=== PATIENT | male | born 1995 | race Two or more races ===

== ENCOUNTER 2017-05-12 14:03 | Emergency (ER) | payer OTHER ==
--- NOTE | ~2017-05-12 | CT23 ---
[facility] A Service of [facility] RADIOLOGY TEXT RESULTS PATIENT: NELIA FITZGERALD LOCATION: [facility] : [birth year] UNIT #: [id number] AGE: [address]: Medina Ulloa MD SEX: M ORDER DR: [id number] [facility] [address] [place], [place] [address] [id number] MR#: [id number] Acc #: [id number] NAME: NELIA FITZGERALD : 1995 SEX: M STUDY DATE/TIME: 05/12/2017 17:15 UNIT: [facility] ROOM: STUDY DESCRIPTION: CT Angio Neck Attending Physician: Medina Ulloa M.D. Ordering Physician: Medina Ulloa M.D. MEDICAL IMAGING REPORT This report is preliminary unless electronic signature is present EXAM CT angiography of the neck HISTORY Suicide attempt. Tried to tie sewing thread around neck. TECHNIQUE CT angiography neck performed with intravenous administration of 100 mL Isovue-370. Multiple three-dimensional reconstructions performed through the vascular structures. COMPARISON STUDIES No comparisons. FINDINGS Visualized portions of brain unremarkable. The visualized paranasal sinuses and mastoid air cells appear clear. The visualized nasopharyngeal, oropharyngeal, pharyngeal mucosal, retropharyngeal spaces unremarkable. Larynx, subglottic airway, visualized superior mediastinum unremarkable. Visualized pulmonary parenchyma clear. Thyroid, submandibular and parotid glands unremarkable. No adenopathy. No traumatic bony abnormality is suggested. No clear indication of traumatic paraspinal soft tissue abnormality. VASCULAR ANATOMY: Visualized pulmonary arteries unremarkable. Visualized thoracic aorta normal in appearance. Great vessel origins are patent. The left vertebral artery arises from aortic arch. Normal variant. The vertebral arteries are patent bilaterally with a very slightly dominant right vertebral artery. Both vertebral arteries contribute to the basilar artery. Visualized basilar artery normal. The bilateral subclavian arteries are unremarkable. Bilateral common carotid arteries normal. Bilateral cervical, internal and external carotid arteries are normal in [facility] A Service of [facility] RADIOLOGY TEXT RESULTS PATIENT: NELIA FITZGERALD LOCATION: [facility] : [birth year] UNIT #: [id number] AGE: [address]: Medina Ulloa MD SEX: M ORDER DR: appearance. There is no evidence of flow-limiting stenosis. No evidence of dissection or traumatic vascular injury. The visualized petrous and cavernous carotid arteries are unremarkable. IMPRESSION 1. The visualized vertebral and carotid systems in the neck are normal in appearance. There is no evidence of traumatic vascular injury. No dissection. 2. No traumatic paraspinal soft tissue abnormality is suggested in the neck. 3. The study was not tailored for assessment of the bony structures but no acute-appearing bony abnormality is seen. 4. Visualized upper thorax unremarkable. See details above. Dictated by... eBrlin Silva M.D. THIS IS AN ELECTRONICALLY VERIFIED REPORT Berlin Silva M.D. at 05/13/2017 9:39 PM EMELINA/lizeth TD: 05/12/2017 21:46 JOB #: [id number] MEDICAL IMAGING REPORT Page 1 of 1 COPY
[~2017-05-12 14:03] MED LIST: AMOXICILLIN875 MG PO; FAMOTIDINE PO; NAPROSYN-EC500 M1 PO; ZOFRANODT PO
[2017-05-12 16:51] LABS: URINE SOURCE CLEAN CATCH
[2017-05-12 17:03] LABS: BASOPHIL% 0.3 % (0-2.5); EOSINOPHIL% 0.2 % (0.0-7.0); HEMATOCRIT 47.8 % (38.0-50.0); HEMOGLOBIN 15.3 gm/dL (13.0-16.0); LYMPHOCYTE% 13.7 % (17.0-45.0); MEAN CELL VOLUME 84.6 FL (83-96); MEAN PLATELET VOLUME 10.1 FL (6.5-11.5); MONOCYTE# 0.5 X10e3 (0-1.0); MONOCYTE% 3.7 % (3.0-12.0); NEUTROPHIL# 12.2 X10e3 (1.5-7.1); NEUTROPHIL% 82.1 % (40-75); PLATELET COUNT 173 X10e3 (140-420); RED BLOOD COUNT 5.65 X10e (3.90-5.60); RED CELL DISTRIBUTION WIDTH 13.9 % (11.0-15.5); WHITE BLOOD COUNT 14.8 X10e3 (4.0-10.5)
[2017-05-12 17:05] LABS: URINE APPEARANCE CLEAR; URINE BILIRUBIN NEG (NEG); URINE BLOOD NEG (NEG); URINE COLOR YELLOW; URINE GLUCOSE NEG (NEG); URINE KETONE NEG (NEG); URINE LEUKOCYTE ESTERASE TRACE (NEG); URINE NITRATE NEG (NEG); URINE PH 5.5 (5-8); URINE PROTEIN NEG (NEG); URINE SPECIFIC GRAVITY 1.013 (1.003-1.035); URINE UROBILINOGEN 0.2 MG/DL (NEG)
[2017-05-12 17:05] LABS: DIFF IND NO
[2017-05-12 17:08] LABS: U HYALINE CASTS AUWI 0-2 /[LPF]; URBCS1 AUWI 0-2 /[HPF] (0-2); URINE BACTERIA AUWI NEG (NEGATIVE); URINE SQUAMOUS EPITHELIAL CELL NONE SEEN /[HPF]
[2017-05-12 17:11] LABS: CULTURE INDICATED? NO
[2017-05-12 17:20] LABS: ALBUMIN SERUM 4.8 g/dL (3.5-5.0); ALKALINE PHOSPHATASE 64 U/L (32-92); ALT (SGPT) 14 U/L (10-40); AST (SGOT) 16 U/L (10-42); BILIRUBIN, DIRECT 0.2 mg/dL (0.0-0.2); BILIRUBIN,INDIRECT 2.1 mg/dL (0.0-0.9); BILIRUBIN,TOTAL 2.3 mg/dL (0.2-2.0); BLOOD UREA NITROGEN 17 mg/dL (9-23); BUN/CREATININE RATIO 15.45; CALCIUM SERUM 9.3 mg/dL (8.4-10.2); CARBON DIOXIDE 26 mmol/L (22-31); CHLORIDE 107 mmol/L (100-111); CREATININE SERUM 1.1 mg/dL (0.6-1.4); GLOM FILT RATE Estimated 96.1 mL/min (>60); GLUCOSE FASTING 82 mg/dL (70-110); POTASSIUM 3.5 mmol/L (3.5-5.1); PROTEIN TOTAL SERUM 7.7 g/dL (6.0-8.3); SALICYLATE <4.0 mg/dL; SODIUM 139 mmol/L (135-145)
[2017-05-12 17:21] LABS: AMPHETAMINE NEG (NEG); BARBITURATES NEG (NEG); BENZODIAZEPINES NEG (NEG); COCAINE NEG (NEG); MARIJUANA POS (NEG); OPIATES NEG (NEG); TRICYCLIC ANTIDEPRESSANTS NEG (NEG); U METHADONE NEG (NEG)
[2017-05-12 17:22] LABS: ACETAMINOPHEN <10 ug/mL; ALCOHOL BLOOD <5 mg/dL (0)
[2017-05-12 18:06] LABS: POC - CREATININE 0.99 mg/dL (0.64-1.27); POC - GFR >60.0 mL/min (>60)
== END 2017-05-12 22:40 ==
LOC: CED 14:03
PROVIDERS: Emergency Medicine
DX: T14.91 Suicide attempt (principal); F32.9 Major depressive disorder, single episode, unspecified; F17.210 Nicotine dependence, cigarettes, uncomplicated; Z90.89 Acquired absence of other organs; Z79.2 Long term (current) use of antibiotics; Z79.899 Other long term (current) drug therapy
CPT/HCPCS: 36415; 70498; 80048; 80076; 80307; 81003; 82565; 85025; 99285; G0480; Q9967

== ENCOUNTER 2017-05-12 19:41 | Inpatient (IN) | payer OTHER ==
--- NOTE | ~2017-05-12 | DS ---
Unit #: [id number] #: [id number] Patient: NELIA FITZGERALD [id number] [place] [address] [id number] I MR#: [id number] NAME: NELIA FITZGERALD ROOM: [facility] Age: 21 Sex: M Admission Date: 05/12/2017 : 1995 Discharge Date: 05/18/2017 Attending Physician: Tavon Bradley M.D. Primary Care Physician: Primary Care Physician No DISCHARGE SUMMARY REASON FOR ADMISSION The patient is a 23-year-old male, admitted to the [facility] unit with suicidal ideation. HOSPITAL COURSE The patient was admitted to the [facility] unit and placed on suicide precautions. He was begun on Lexapro 10 mg nightly and trazodone on a p.r.n. basis for sleep. Trazodone was increased to 100 mg at h.s. The patient did seem to have some rather unrealistic expectations of inpatient care initially during his stay in the hospital, but as his stay progressed, he was more active within the therapeutic milieu and reported reduction in suicidal ideation. By 05/18/2017, he had reconciled with his "baby mama" and requested discharge from the hospital, it was so ordered. FINAL DIAGNOSIS Major depressive disorder, recurrent, moderate. DISPOSITION ON DISCHARGE The patient is discharged on the following medications; trazodone 100 mg at h.s. p.r.n. insomnia and Lexapro 10 mg daily for depression. DISCHARGE INSTRUCTIONS No dietary or physical restrictions were placed on the patient at the time of discharge. It will be recommended that he follow in the intensive outpatient program provided by this facility and through the auspices of community mental health resources. PROGNOSIS The patient's prognosis is considered fair. Dictated by... Tavon Bradley M.D. CB/lucy TD: 05/19/2017 08:04 JOB #: [id number] Unit #: [id number] #: [id number] Patient: NELIA FITZGERALD DISCHARGE SUMMARY Page 1 of 1 X Tavon Bradley MD X DISCHARGE SUMMARY
--- NOTE | ~2017-05-12 | PA ---
Unit #: [id number] #: [id number] Patient: NELIA FITZGERALD [id number] [facility] [address] [place] [address] [id number] MR#: [id number] NAME: NELIA FITZGERALD ROOM: P254 Age: 21 Sex: M Admission Date: 05/12/2017 : 1995 Date of Assessment: 05/13/2017 Attending Physician: Tavon Bradley M.D. Admitting Physician: Tavon Bradley M.D. Primary Care Physician: Primary Care Physician No PSYCHIATRIC ASSESSMENT IDENTIFYING INFORMATION The patient is a 21-year-old male admitted to the [address] [place] [address] with recent suicide attempt. INFORMANT(S) Patient. RELIABILITY Good. CHIEF COMPLAINT Tried to kill myself. HISTORY OF PRESENT ILLNESS The patient is a 21-year-old male admitted to the [address] [place] [address] after he had attempted suicide by means of hanging himself using thread. The patient reports 1 previous suicide attempt this having taken place approximately 1 month ago. The patient recently moved to the [facility] from [place] where he had lived for most of his life. He is here because his "spouse has family here." He reports that he has not been able to find work in the [place] area. He had previously done work in a body shop. Patient denies any prior psychiatric treatment. He continues to complain of depressed mood, hopelessness, reduced sleep and loss of appetite. PAST PSYCHIATRIC HISTORY None. FAMILY HISTORY Noncontributory. SOCIAL HISTORY The patient is originally from [facility]. 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 He lives with his "spouse" and the 4 children of their combined family. MEDICAL HISTORY Noncontributory. MEDICATION HISTORY None. Unit #: [id number] #: [id number] Patient: NELIA FITZGERALD ALLERGIES None. MENTAL STATUS EXAM At this time, reveals the patient to be a well-developed, well-nourished male appearing stated age. He is in no apparent physical distress at the time of examination. He is awake, alert, oriented in all spheres. His mood is mildly dysphoric. His affect constricted. Speech is generally relevant and coherent. There are no gross deficits in memory or cognition noted. Intelligence is judged to be in the average range based on fund of knowledge. The patient is cooperative throughout the interview. He continues to endorse positive suicidal ideation. He denies homicidal ideation. He denies any psychotic symptoms. His judgement and insight appear to be reasonably intact. ASSETS AND LIABILITIES Patient's assets, motivation for change. Liabilities, lack of resources, unemployment. ADMITTING DIAGNOSES 1. Major depressive disorder, single episode moderate. 2. Cannabis use disorder. PSYCHIATRIC PLAN/TREATMENT GOALS The patient remains hospitalized for safety and stabilization. A trial of Lexapro 10 mg daily will be initiated and the patient will be transferred to the [address] [place] [address] unit. The patient will participate in appropriate waldrop and milieu activities. DISCHARGE PLANNING Followup to take place through the auspices of community mental health resources. ESTIMATED LENGTH OF STAY Five to seven days. Dictated by... Tavon Bradley M.D. ENDER/lowell TD: 05/13/2017 20:54 JOB #: [id number] PSYCHIATRIC ASSESSMENT Page 1 of 1 X Tavon Bradley MD X PSYCHIATRIC ASSESSMENT
--- NOTE | ~2017-05-12 | PN ---
Unit #: [id number] #: [id number] Patient: NELIA FITZGERALD [id number] [facility] [address] [place] [address] [id number] I MR#: [id number] NAME: NELIA FITZGERALD ROOM: P254 Age: 21 Sex: M Admission Date: 05/12/2017 : 1995 Attending Physician: Tavon Bradley M.D. Admitting Physician: Tavon Bradley M.D. Primary Care Physician: Primary Care Physician Mariah SWANSON PROGRESS NOTES DATE 05/17/2017 DISCUSSION The patient is in somewhat brighter spirits today and is reporting a reduction in suicidal ideation. He seems more hopeful and does appear to have made arrangements for postdischarge housing should he sustain progress discharge will likely take place tomorrow. Dictated by... Tavon Bradley M.D. CB/maisha TD: 05/17/2017 12:58 JOB #: [id number] [facility] PROGRESS NOTES Page 1 of 1 X Tavon Bradley MD PROGRESS NOTE
--- NOTE | ~2017-05-12 | PN ---
Unit #: [id number] #: [id number] Patient: NELIA FITZGERALD [id number] [facility] [address] [place] [address] [id number] I MR#: [id number] NAME: NELIA FITZGERALD ROOM: P254 Age: 21 Sex: M Admission Date: 05/12/2017 : 1995 Attending Physician: Tavon Bradley M.D. Admitting Physician: Tavon Bradley M.D. Primary Care Physician: Primary Care Physician Mariah TOVAR NOTES DATE 05/15/2017 DISCUSSION The patient is active within the therapeutic milieu. He continued to complain of poor sleep and continues to endorse positive suicidal ideation. When asked regarding post discharge treatment options the patient today states that he does not wish to leave this facility. He also indicates that he has tended to sleep better in hospitals in the past indicating a possibility that he has been hospitalized on multiple previous occasions and may be somewhat hospital dependent. His expectations of inpatient care firmly redirected today. I will increase his trazodone to 100 mg at h.s. suicidal ideation remain in place. Dictated by... Tavon Bradley M.D. CB/jace TD: 05/16/2017 00:57 JOB #: [id number] [facility] TOVAR NOTES Page 1 of 1 X Tavon Bradley MD PROGRESS NOTE
--- NOTE | ~2017-05-12 | PN ---
Unit #: [id number] #: [id number] Patient: NELIA FITZGERALD [id number] [facility] [address] [place] [address] [id number] I MR#: [id number] NAME: NELIA FITZGERALD ROOM: P254 Age: 21 Sex: M Admission Date: 05/12/2017 : 1995 Attending Physician: Tavon Bradley M.D. Admitting Physician: Tavon Bradley M.D. Primary Care Physician: Primary Care Physician Mariah SWANSON PROGRESS NOTES DATE 05/16/2017 DISCUSSION The patient seems a bit brighter today and says that he slept better last evening. He is reporting reduction in suicidal ideation, and should he sustain progress discharge should take place as early as tomorrow. Dictated by... Tavon Bradley M.D. CB/bztrudy TD: 05/16/2017 13:39 JOB #: [id number] [facility] PROGRESS NOTES Page 1 of 1 X Tavon Bradley MD X PROGRESS NOTE
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
--- NOTE | ~2017-05-12 | PN ---
Unit #: [id number] #: [id number] Patient: NELIA FITZGERALD [id number] [facility] [address] [place] [address] [id number] I MR#: [id number] NAME: NELIA FITZGERALD ROOM: P254 Age: 21 Sex: M Admission Date: 05/12/2017 : 1995 Attending Physician: Tavon Bradley M.D. Admitting Physician: Tavon Bradley M.D. Primary Care Physician: Primary Care Physician Mariah SWANSON PROGRESS NOTES DATE 05/14/2017 DISCUSSION The patient remains dysphoric and expresses some rather unrealistic expectations of inpatient care stating "the minute I walk back out there I will be suicidal" related to his current homeless status and ability to return to his home state of [place], etc. I have redirected the patient's expectations of inpatient care and I will ask a protective services social worker to see him regarding resources for the homeless. Dictated by... Tavon Bradley M.D. CB/lowell TD: 05/14/2017 12:07 JOB #: [id number] [facility] PROGRESS NOTES Page 1 of 1 X Tavon Bradley MD PROGRESS NOTE
--- NOTE | ~2017-05-12 | A ---
[facility] Nutrition Therapy DATE: 05/13/17 Patient: NELIA FITZGERALD Physician: KINGS Address: [address] Room/Bed: [address], Zip: [place] [address] Admit Date: 05/12/17 Date of : [birth year] Height: 5 8 Weight: [id number] NUTRITIONAL ASSESSMENT: REASON: UNINTENTIONAL WEIGHT LOSS PATIENT ADMITTED FOR DEPRESSION AND SI PMH: GERD Anthropometrics: HT: 5'8", WT: 155#, BMI: 23.6 Labs: 05/12/17- ALL NUTRITIONAL LABS WNL Meds: MILK OF MAG, MAG-AL Assessment: PATIENT IS A 21 Y/O MALE ADMITTED FOR DEPRESSION AND SI. PATIENT IS CURRENTLY UNEMPLOYED, LIVES WITH FAMILY, AND HAS OCCASIONAL MARIJUANA USE BUT DENIES ANY OTHER SUBSTANCE ABUSE. UPON ADMIT PATIENT STATED A POOR APPETITE WITH A 5# WEIGHT LOSS OVER LAST SEVERAL MONTHS, AND HE HAS NOT BEEN EATING OR SLEEPING WELL. WEIGHT HX PER [employer] SHOWS A 5# WEIGHT LOSS X 1 YEAR. CURRENT PO INTAKES ARE UNAVAILABLE. THERE ARE NO SKIN OR GI ISSUES NOTED ATT. PATIENT'S NUTRITION LABS WERE ALL WNL. HIS BMI IS WITHIN A HEALTHY RANGE. PATIENT IS ON A REGULAR DIET. Dx: UNINTENTIONAL WEIGHT LOSS R/T DEPRESSION AEB WEIGHT LOSS, DECREASED APPETITE, NUTRITIONAL RISK POINT Intervention: REGULAR DIET, MEDS PER MD, PSYCH Monitoring, Evaluation and Goals: 1. ADEQUATE PO INTAKES >50% OF MEALS 2. PREVENT, CORRECT MICRO/MACRO NUTRIENT DEFICIENCIES MONITOR: WEIGHTS, LABS, PO/FLUID INTAKES Recommendations: 1. CONTINUE REGULAR DIET TOLERATED 2. ENCOURAGE ADEQUATE PO AND FLUID INTAKES 3. OBTAIN WEIGHTS ROUTINELY (EVERY 3-4 DAYS) RD TO F/U PER PROTOCOL AND PRN R/T PATIENT MILDLY COMPROMISED [facility] Nutrition Therapy DATE: 05/13/17 Patient: NELIA FITZGERALD Physician: KINGS Address: [address] Room/Bed: [address], Zip: [place] [address] Admit Date: 05/12/17 Date of : [birth year] Height: 5 8 Weight: [id number] Respectfully, DWAINE SAETTEL, RD, LD [facility] cc: client file
== END 2017-05-18 16:15 | disposition home or self-care (01) | DRG 885 ==
LOC: P2L 23:12 → P1E 23:12 → P2L 05-13 18:33
DX: F32.1 Major depressive disorder, single episode, moderate (principal); R45.851 Suicidal ideations; F12.10 Cannabis abuse, uncomplicated; Z91.5 Personal history of self-harm; Z59.0 Homelessness